=== PATIENT | male | born 1935 | race Caucasian/White ===

== ENCOUNTER 2017-08-25 15:42 | Observation (INO) | payer MEDICARE, OTHER ==
[2017-08-25] VITALS (7 sets, daily range): BP systolic 97–117; BP diastolic 53–57; PULSE 96–109; RESP 16–18; TEMP 97.8–98; O2SAT 91–98
--- NOTE | 2017-08-25 16:35 | PD ---
HPI Chief Complaint: generalized weakness, shortness of breath Time Seen by Provider: 16:34 Travel History International Travel<30 days: No Contact w/Intl Traveler<30days: No Traveled to known affect area: No History of Present Illness HPI 82-year-old gentleman was sent from his primary care's office for hypoxia and shortness of breath. His daughter took him to the primary care's office since her father has not been feeling too good for past 4-5 days. He can barely get up from the bed and requires a lot of assistance including currently wheelchair bound. He was able to ambulate before this. He has been short of breath as per her. His oxygen saturation was in mid 80s when he was taken to the primary care's office. No history of fever. Patient was diagnosed with influenza in May. Currently he is awake and answering questions slowly. Denies of any pain. As per the daughter he is not a complainer. He was slightly tachycardic in triage. His oxygen oxygen saturation is 94% on 2 L of oxygen via nasal cannula. He does not require oxygen at home. [facility] Past Medical History Narrative Medical List of his past medical, surgical, social and family history is reviewed from the nurse's note. Social History Tobacco Use: No Allergies-Medications (Allergen,Severity, Reaction): Coded Allergies: No Known Allergies (Verified Allergy, Unknown, 08/25/17) Comments List of his allergy to be from the nursing note. Reported Meds & Prescriptions Reported Meds & Active Scripts Active No Active Prescriptions or Reported Medications Narrative Medication List of his home medications reviewed from the nursing note. Review of Systems Except as stated in HPI: all other systems reviewed are Neg Respiratory: Positive: Shortness of Breath Physical Exam Narrative GENERAL: Elderly, frail, ordered distress SKIN: Focused skin assessment warm/dry. HEAD: Atraumatic. Normocephalic. EYES: Pupils equal and round. No scleral icterus. No injection or drainage. ENT: No nasal bleeding or discharge. Mucous membranes pink and moist. NECK: Trachea midline. No JVD. CARDIOVASCULAR: Regular rate and rhythm. No murmur appreciated. RESPIRATORY: No accessory muscle use. Diminished air entry in the right lung base GASTROINTESTINAL: Abdomen soft, non-tender, nondistended. Hepatic and splenic margins not palpable. MUSCULOSKELETAL: No obvious deformities. No clubbing. No cyanosis. No edema. Significant kyphosis at the cervical-thoracic junction NEUROLOGICAL: Awake and alert. No obvious cranial nerve deficits. Motor grossly within normal limits. Normal speech. PSYCHIATRIC: Appropriate mood and affect; insight and judgment normal. Data Data Last Documented VS Vital Signs Date Time Temp Pulse Resp B/P (MAP) Pulse Ox O2 Delivery O2 Flow Rate FiO2 08/25/17 17:46 100 16 97/54 (68) 91 Nasal Cannula 3.00 08/25/17 16:35 97.8 Orders Orders Complete Blood Count With Diff (08/25/17 16:41) Comprehensive Metabolic Panel (08/25/17 16:41) B-Type Natriuretic Peptide (08/25/17 16:41) Troponin I (08/25/17 16:41) Urinalysis - C+S If Indicated (08/25/17 16:41) Blood Culture (08/25/17 16:41) Iv Access Insert/Monitor (08/25/17 16:41) Electrocardiogram (08/25/17 16:41) Ecg Monitoring (08/25/17 16:41) Oximetry (08/25/17 16:41) Oxygen Administration (08/25/17 16:41) Chest, Single Ap (08/25/17 16:41) Sodium Chloride 0.9% Flush (Ns Flush) (08/25/17 16:45) Lactic Acid (08/25/17 16:41) Ceftriaxone Inj (Rocephin Inj) (08/25/17 17:45) Azithromycin Inj (Zithromax Inj) (08/25/17 17:45) Admit Order (Ed Use Only) (08/25/17 17:48) Labs Laboratory Tests Test 08/25/17 16:54 White Blood Count 15.4 TH/MM3 Red Blood Count 4.75 MIL/MM3 Hemoglobin 12.6 GM/DL Hematocrit 39.4 % Mean Corpuscular Volume 83.0 FL Mean Corpuscular Hemoglobin 26.6 PG Mean Corpuscular Hemoglobin Concent 32.0 % Red Cell Distribution Width 17.7 % Platelet Count 295 TH/MM3 Mean Platelet Volume 9.2 FL Neutrophils (%) (Auto) 89.0 % Lymphocytes (%) (Auto) 2.2 % Monocytes (%) (Auto) 4.4 % Eosinophils (%) (Auto) 0.8 % Basophils (%) (Auto) 3.6 % Neutrophils # (Auto) 13.8 TH/MM3 Lymphocytes # (Auto) 0.3 TH/MM3 Monocytes # (Auto) 0.7 TH/MM3 Eosinophils # (Auto) 0.1 TH/MM3 Basophils # (Auto) 0.6 TH/MM3 CBC Comment DIFF FINAL Differential Comment Blood Urea Nitrogen 90 MG/DL Creatinine 2.20 MG/DL Random Glucose 129 MG/DL Total Protein 6.2 GM/DL Albumin 2.8 GM/DL Calcium Level 8.3 MG/DL Alkaline Phosphatase 86 U/L Aspartate Amino Transf (AST/SGOT) 23 U/L Alanine Aminotransferase (ALT/SGPT) 31 U/L Total Bilirubin 0.5 MG/DL Sodium Level 142 MEQ/L Potassium Level 4.0 MEQ/L Chloride Level 104 MEQ/L Carbon Dioxide Level 30.8 MEQ/L Anion Gap 7 MEQ/L Estimat Glomerular Filtration Rate 29 ML/MIN Lactic Acid Level 1.0 mmol/L Troponin I 0.41 NG/ML B-Type Natriuretic Peptide 836 PG/ML MDM Medical Decision Making Medical Screen Exam Complete: Yes Emergency Medical Condition: Yes Medical Record Reviewed: Yes Interpretation(s) Twelve-lead EKG was reviewed by me. Normal sinus rhythm, normal axis, PACs, incomplete right bundle branch block, nonspecific ST-T wave changes, heart rate of 94 bpm. Differential Diagnosis Pneumonia, pleural effusion, empyema Narrative Course 5:46 PM blood test results are suggestive of leukocytosis with leftward shift. Chest x-ray shows right hemidiaphragm elevation with bilateral atelectasis and possible right-sided pleural effusion. Chemistry shows elevated BUN and creatinine and elevated troponin. Patient was given IV Rocephin and Zithromax by me. Lactic acid is within normal limit. Blood cultures pending. I've admitted the patient to the hospitalist. Patient would require cardiac workup including echocardiogram. The BUN and creatinine is elevated and there is no old labs to compare the chronicity of this. I discussed the case with the hospitalist who has accepted the patient. 7:30 PM after the daughter was told about her father's information she wanted to talk to her stepsisters and other family members. She said that her father wanted to go without getting any heroic measures done when the time came. She was debating between taking him home under hospice care or admitting to hospice can see him here and then they can go home. I was just told by the family that they would like to admit the father overnight and get palliative consult. I conveyed this to the current hospitalist and patient will be on comfort measures. Procedures EKG Prior to Arrival: No Diagnosis Primary Impression: Respiratory distress Additional Impressions: Hypoxia Non-STEMI (non-ST elevated myocardial infarction) possible pneumonia Leukocytosis Qualified Codes: D72.829 - Elevated white blood cell count, unspecified Renal failure Qualified Codes: N19 - Unspecified kidney failure Admitting Information Admitting Physician Requests: Admit Scripts No Active Prescriptions or Reported Meds Ge Simental MD Aug 25, 2017 16:35
[2017-08-25] MEDS ORDERED: SODIUM CHLORIDE 0.9% FLUSH 10 ML FLUSH IVF PRN (16:45)
[2017-08-25] MEDS ORDERED: LISI-515 PO (16:48)
[2017-08-25 17:09] LABS: AUTOMATED NEUTROPHIL # 13.8 TH/MM3 (1.8-7.7); BASOPHIL # 0.6 TH/MM3 (0-0.2); BASOPHIL % 3.6 % (0.0-2.0); EOSINOPHIL # 0.1 TH/MM3 (0-0.4); EOSINOPHIL % 0.8 % (0.0-4.0); HEMATOCRIT 39.4 % (39.0-51.0); HEMOGLOBIN 12.6 GM/DL (13.0-17.0); LYMPH % 2.2 % (9.0-44.0); LYMPHOCYTE # 0.3 TH/MM3 (1.0-4.8); MEAN CORPUSCULAR HEMOGLOBIN 26.6 PG (27.0-34.0); MEAN PLATELET VOLUME 9.2 FL (7.0-11.0); MONO % 4.4 % (0.0-8.0); MONOCYTE # 0.7 TH/MM3 (0-0.9); PLATELET COUNT 295 TH/MM3 (150-450); RED BLOOD COUNT 4.75 MIL/MM3 (4.50-5.90); RED CELL DISTRIBUTION WIDTH 17.7 % (11.6-17.2); WHITE BLOOD COUNT 15.4 TH/MM3 (4.0-11.0)
[2017-08-25 17:17] LABS: CHLORIDE 104 MEQ/L (98-107); SODIUM (NA) 142 MEQ/L (136-145)
[2017-08-25 17:20] LABS: ALBUMIN 2.8 GM/DL (3.4-5.0); BICARBONATE 30.8 MEQ/L (21.0-32.0); CALCIUM 8.3 MG/DL (8.5-10.1)
[2017-08-25 17:21] LABS: BLOOD UREA NITROGEN 90 MG/DL (7-18); GLUCOSE,RANDOM 129 MG/DL (74-106)
--- NOTE | 2017-08-25 17:22 | RADRPT ---
EXAM DATE/TIME: 08/25/2017 16:56 [facility] COMPARISON: No previous studies available for comparison. INDICATIONS : Shortness of breath. MEDICAL HISTORY : None. SURGICAL HISTORY : None. ENCOUNTER: Initial ACUITY: 1 day PAIN SCORE: 0/10 LOCATION: Bilateral chest FINDINGS: A single view of the chest demonstrates elevation of the right hemidiaphragm with bibasilar atelectat ic changes. Possible small associated effusions, especially on the right. Heart size is borderline pr ominent but appears to be well compensated. Osseous structures are intact. CONCLUSION: 1. Elevation of right hemidiaphragm. Bibasilar atelectatic changes 2. Possible associated effusions, right greater than left. 3. Cardiomegaly without overt failure. David Askew MD on August 25, 2017 at 17:18 Board Certified Radiologist. This report was verified electronically.
[2017-08-25 17:24] LABS: ALT (GPT) 31 U/L (12-78); AST (GOT) 23 U/L (15-37); GLOMERULAR FILTRATION RATE 29 ML/MIN (>89)
[2017-08-25 17:25] LABS: TOTAL BILIRUBIN ADULT 0.5 MG/DL (0.2-1.0); TOTAL PROTEIN 6.2 GM/DL (6.4-8.2)
[2017-08-25 17:27] LABS: ALKALINE PHOSPHATASE 86 U/L (45-117)
[2017-08-25 17:29] LABS: TROPONIN I 0.41 NG/ML (0.02-0.05)
[2017-08-25] MEDS ORDERED: AZITHROMYCIN INJ 500 MG in SODIUM CHLOR 0.9% 250 ML INJ 250 ML IV ONE (17:45)
[2017-08-25] MEDS ORDERED: cefTRIAXone INJ 1,000 MG in SODIUM CHLORIDE 0.9% INJ 100 ML IV ONE (17:45)
[2017-08-25] MEDS ORDERED: ONDANSETRON HCL 4 MG/2 ML VIAL IVP PRN (19:30)
[2017-08-25] MEDS ORDERED: BISACODYL 10 MG SUPP RECTAL PRN (19:30)
[2017-08-25] MEDS ORDERED: SODIUM CHLORIDE 0.9% FLUSH 10 ML FLUSH IV FLUSH PRN (19:30)
[2017-08-25] MEDS ORDERED: MORPHINE SULFATE 2 MG/ML INJ IV PUSH PRN (19:30)
[2017-08-25] MEDS ORDERED: MAGNESIUM HYDROXIDE SUSP 30 ML CUP PO PRN (19:30)
[2017-08-25] MEDS ORDERED: LACTULOSE SYRUP 20 GM/30 ML CUP PO PRN (19:30)
[2017-08-25] MEDS ORDERED: SENNOSIDES 8.6 MG TAB PO PRN (19:30)
[2017-08-25] MEDS ORDERED: ACETAMINOPHEN/HYDROcodone 325 MG/5 MG TAB PO PRN (19:30)
[2017-08-25] MEDS ORDERED: ACETAMINOPHEN 325 MG TAB PO PRN (19:30)
[2017-08-25] MEDS ORDERED: RESP: ALBUTEROL 2.5 MG/IPRATROPIUM 0.5 MG NEB (PRN) NEB (19:45)
[2017-08-25] MEDS: DOCUSATE SODIUM 50 MG/SENNA 8.6 MG TAB PO SCH (23:06)
[2017-08-25] MEDS: SODIUM CHLORIDE 0.9% FLUSH 10 ML FLUSH IV FLUSH SCH (23:14)
[2017-08-25] MEDS: SODIUM CHLOR 0.9% 1000 ML INJ 1,000 ML IV SCH (23:15)
[2017-08-26 00:30] VITALS: BP 96/52; PULSE 89; RESP 16; TEMP 97.6; O2SAT 96
[2017-08-26] MEDS: SODIUM CHLOR 0.9% 1000 ML INJ 1,000 ML IV SCH ×2 (05:38→07:24)
[2017-08-26 08:00] VITALS: BP 90/60; PULSE 82; RESP 18; TEMP 97; O2SAT 96
[2017-08-26] MEDS: DOCUSATE SODIUM 50 MG/SENNA 8.6 MG TAB PO SCH (08:38)
[2017-08-26] MEDS: SODIUM CHLORIDE 0.9% FLUSH 10 ML FLUSH IV FLUSH SCH (08:38)
--- NOTE | 2017-08-26 10:37 | HHI.PR ---
Objective Vitals Vital Signs Date Time Temp Pulse Resp B/P (MAP) Pulse Ox O2 Delivery O2 Flow Rate FiO2 08/26/17 10:11 Nasal Cannula 3.00 08/26/17 08:00 97.0 82 18 90/60 (70) 96 08/26/17 05:03 08/26/17 00:30 97.6 89 16 96/52 (67) 96 08/25/17 21:24 94 Nasal Cannula 3.00 08/25/17 21:22 98.0 97 18 102/57 (72) 93 08/25/17 21:08 97 18 93 Nasal Cannula 3.00 08/25/17 21:07 96 18 102/57 (72) 92 Nasal Cannula 3.00 08/25/17 19:26 98 18 101/57 (72) 93 Nasal Cannula 3.00 08/25/17 17:46 100 16 97/54 (68) 91 Nasal Cannula 3.00 08/25/17 16:46 94 Nasal Cannula 2.00 08/25/17 16:46 94 Nasal Cannula 2.00 08/25/17 16:39 94 Nasal Cannula 2.00 08/25/17 16:35 97.8 109 16 117/53 (74) 98 I/O 08/25/17 08/25/17 08/25/17 08/26/17 08/26/17 08/26/17 07:00 15:00 23:00 07:00 15:00 23:00 Intake Total 350 ml 588 ml Balance 350 ml 588 ml Intake IV Total 350 ml 588 ml # Voids 0 Result Diagram: 08/25/17 1654 08/25/17 165 Nikki Vu Aug 26, 2017 10:37
--- NOTE | 2017-08-26 10:58 | HHI.HP ---
HPI Service [facility] Primary Care Physician Andrea Wing DO Admission Diagnosis Non-STEMI, renal failure, possible pneumonia Diagnoses: Chief Complaint: Shortness of breath Travel History International Travel<30 Days: No Contact w/Intl Traveler <30 Da: No Traveled to Known Affected Are: No History of Present Illness This is a pleasant 82-year-old male patient with a known medical history of hypertension who presented to the ED with complaints of shortness of breath. Patient is seen at bedside with daughter, patient is a poor historian, daughter has helped with obtaining medical history and recent occurrences. She states that he presented to his PCP office because he wasn't feeling well for roughly 4 days, with increased shortness of breath and weakness. Patient's baseline is able to ambulate himself but has lately been weak and unable to walk, using his wheelchair at home. Supposedly his oxygen was in the mid 80s and the primary care office and was sent here for evaluation. Should be noted that patient had influenza in May and since then has just been declining. Denies any fever , chills, abdominal pain, nausea, vomiting, diarrhea or dysuria. Does not require any oxygen at home, has been using 2 LNC. Patient was found to be hypotensive on presentation. BNP 836. Creatinine 2.2, lactic acid 1.0, white blood cell 15.4. Review of Systems Constitutional: DENIES: Fever, Chills Eyes: DENIES: Blurred vision, Diplopia Respiratory: COMPLAINS OF: Shortness of breath, DENIES: Cough Cardiovascular: DENIES: Chest pain, Palpitations Gastrointestinal: DENIES: Abdominal pain Musculoskeletal: DENIES: Joint pain Hematologic/lymphatic: DENIES: Bruising Psychiatric: DENIES: Anxiety Except as stated in HPI: all other systems reviewed are Neg Past Family Social History Past Medical History Hypertension Past Surgical History Denies any surgical history. Reported Medications Active Reported Lisinopril 20 Mg Tab 20 Mg PO DAILY Allergies: Coded Allergies: No Known Allergies (Verified Allergy, Unknown, 08/25/17) Active Ordered Medications Current Medications Medications (Trade) Dose Ordered Sig/[place] Route Start Time Stop Time Status Last Admin (NS Flush) 2 ml UNSCH PRN IVF 08/25/17 16:45 Sodium Chloride 1,000 ml @ 100 mls/hr Q10H IV 08/25/17 19:27 08/26/17 07:24 (NS Flush) 2 ml UNSCH PRN IV FLUSH 08/25/17 19:30 (NS Flush) 2 ml BID IV FLUSH 08/25/17 21:00 08/25/17 23:14 (Zofran Inj) 4 mg Q6H PRN IVP 08/25/17 19:30 (Tylenol) 650 mg Q6H PRN PO 08/25/17 19:30 ([place] 5-325 Mg) 1 tab Q4H PRN PO 08/25/17 19:30 08/26/17 11:02 (Morphine Inj) 2 mg Q2H PRN IV PUSH 08/25/17 19:30 (Suzie-Colace) 1 tab BID PO 08/25/17 21:00 (Milk Of Magnesia Liq) 30 ml Q12H PRN PO 08/25/17 19:30 (Senokot) 17.2 mg Q12H PRN PO 08/25/17 19:30 (Dulcolax Supp) 10 mg DAILY PRN RECTAL 08/25/17 19:30 (Lactulose Liq) 30 ml DAILY PRN PO 08/25/17 19:30 Ceftriaxone Sodium 1000 mg/ Sodium Chloride 100 ml @ 200 mls/hr Q24H IV 08/26/17 20:00 Azithromycin 500 mg/Sodium Chloride 250 ml @ 250 mls/hr Q24H IV 08/26/17 19:00 (Duoneb Neb) 1 ampule Q4HR NEB PRN NEB 08/25/17 19:45 Family History Family history reviewed and noncontributory Social History Patient denies any use of tobacco, alcohol or illicit drug use. Physical Exam Vital Signs Vital Signs Date Time Temp Pulse Resp B/P (MAP) Pulse Ox O2 Delivery O2 Flow Rate FiO2 08/26/17 10:11 Nasal Cannula 3.00 08/26/17 08:00 97.0 82 18 90/60 (70) 96 08/26/17 05:03 08/26/17 00:30 97.6 89 16 96/52 (67) 96 08/25/17 21:24 94 Nasal Cannula 3.00 08/25/17 21:22 98.0 97 18 102/57 (72) 93 08/25/17 21:08 97 18 93 Nasal Cannula 3.00 08/25/17 21:07 96 18 102/57 (72) 92 Nasal Cannula 3.00 08/25/17 19:26 98 18 101/57 (72) 93 Nasal Cannula 3.00 08/25/17 17:46 100 16 97/54 (68) 91 Nasal Cannula 3.00 08/25/17 16:46 94 Nasal Cannula 2.00 08/25/17 16:46 94 Nasal Cannula 2.00 08/25/17 16:39 94 Nasal Cannula 2.00 08/25/17 16:35 97.8 109 16 117/53 (74) 98 Physical Exam GENERAL: Well-nourished, well-developed elderly weak appearing male patient in NAD. SKIN: Warm and dry. No rash. HEAD: Normocephalic. Atraumatic. EYES: Pupils equal and round. No scleral icterus. No injection or drainage. ENT: No nasal bleeding or discharge. Mucous membranes pink and moist. NECK: Supple. Trachea midline. CARDIOVASCULAR: Regular rate and rhythm. S1, S2 noted. No murmur appreciated. RESPIRATORY: No accessory muscle use. Clear to auscultation. Breath sounds equal bilaterally. GASTROINTESTINAL: Abdomen soft, non-tender, nondistended. Normoactive bowel sounds x4. MUSCULOSKELETAL: No obvious deformities. Extremities without clubbing, cyanosis , or edema. NEUROLOGICAL: Awake and alert. No obvious cranial nerve deficits. Motor grossly within normal limits. 4/5 muscle strength in bilateral upper and lower extremities. Normal speech. PSYCHIATRIC: Appropriate mood and affect; insight and judgment normal. Laboratory Laboratory Tests Test 08/25/17 16:54 White Blood Count 15.4 Red Blood Count 4.75 Hemoglobin 12.6 Hematocrit 39.4 Mean Corpuscular Volume 83.0 Mean Corpuscular Hemoglobin 26.6 Mean Corpuscular Hemoglobin Concent 32.0 Red Cell Distribution Width 17.7 Platelet Count 295 Mean Platelet Volume 9.2 Neutrophils (%) (Auto) 89.0 Lymphocytes (%) (Auto) 2.2 Monocytes (%) (Auto) 4.4 Eosinophils (%) (Auto) 0.8 Basophils (%) (Auto) 3.6 Neutrophils # (Auto) 13.8 Lymphocytes # (Auto) 0.3 Monocytes # (Auto) 0.7 Eosinophils # (Auto) 0.1 Basophils # (Auto) 0.6 CBC Comment DIFF FINAL Differential Comment Blood Urea Nitrogen 90 Creatinine 2.20 Random Glucose 129 Total Protein 6.2 Albumin 2.8 Calcium Level 8.3 Alkaline Phosphatase 86 Aspartate Amino Transf (AST/SGOT) 23 Alanine Aminotransferase (ALT/SGPT) 31 Total Bilirubin 0.5 Sodium Level 142 Potassium Level 4.0 Chloride Level 104 Carbon Dioxide Level 30.8 Anion Gap 7 Estimat Glomerular Filtration Rate 29 Lactic Acid Level 1.0 Troponin I 0.41 B-Type Natriuretic Peptide 836 Date/Time Source Procedure Growth Status 08/25/17 16:54 Blood Peripheral Aerobic Blood Culture Pending Received 08/25/17 16:54 Blood Peripheral Anaerobic Blood Culture Pending Received Result Diagram: 08/25/17 1654 08/25/17 1654 Imaging Active Reported Lisinopril 20 Mg Tab 20 Mg PO DAILY Septic Shock Reassessment Septic shock perfusion: reassessment completed Caprini VTE Risk Assessment Caprini VTE Risk Assessment: Mod/High Risk (score >= 2) Caprini Risk Assessment Model Point Value = 1 Point Value = 2 Point Value = 3 Point Value = 5 Age 41-60 Minor surgery BMI > 25 kg/m2 Swollen legs Varicose veins or History of unexplained or recurrent spontaneous Oral contraceptives or hormone replacement Sepsis (< 1 month) Serious lung disease, including pneumonia (< 1 month) Abnormal pulmonary function Acute myocardial infarction Congestive heart failure (< 1 month) History of inflammatory bowel disease Medical patient at bed rest Age 61-74 Arthroscopic surgery Major open surgery (> 45 min) Laparoscopic surgery (> 45 min) Malignancy Confined to bed (> 72 hours) Immobilizing plaster cast Central venous access Age >= 75 History of VTE Family history of VTE Factor V Leiden Prothrombin [id number] Lupus anticoagulant Anticardiolipin antibodies Elevated serum homocysteine Heparin-induced thrombocytopenia Other congenital or acquired thrombophilia Stroke (< 1 month) Elective arthroplasty Hip, pelvis, or leg fracture Acute spinal cord injury (< 1 month) Prophylaxis Regimen Total Risk Factor Score Risk Level Prophylaxis Regimen 0-1 Low Early ambulation 2 Moderate Order ONE of the following: *Sequential Compression Device (SCD) *Heparin 5000 units SQ BID 3-4 Higher Order ONE of the following medications: *Heparin 5000 units SQ TID *Enoxaparin/Lovenox 40 mg SQ daily (WT < 150 kg, CrCl > 30 mL/min) *Enoxaparin/Lovenox 30 mg SQ daily (WT < 150 kg, CrCl > 10-29 mL/min) *Enoxaparin/Lovenox 30 mg SQ BID (WT < 150 kg, CrCl > 30 mL/min) AND/OR *Sequential Compression Device (SCD) 5 or more Highest Order ONE of the following medications: *Heparin 5000 units SQ TID (Preferred with Epidurals) *Enoxaparin/Lovenox 40 mg SQ daily (WT < 150 kg, CrCl > 30 mL/min) *Enoxaparin/Lovenox 30 mg SQ daily (WT < 150 kg, CrCl > 10-29 mL/min) *Enoxaparin/Lovenox 30 mg SQ BID (WT < 150 kg, CrCl > 30 mL/min) AND *Sequential Compression Device (SCD) Assessment and Plan Problem List: (1) Respiratory distress ICD Code: R06.03 - Acute respiratory distress Status: Acute Plan: Suspect secondary to CHF exacerbation vs infectious etiology vs NSTEMI With leukocytosis, WBC 15.4. Requiring supplemental O2. Lactic acid 1.0 Chest x-ray reviewed showing elevation of right hemidiaphragm. Bibasilar atelectatic changes. With associated effusions right greater than left. Cardiomegaly. Blood cultures drawn and no growth today. Follow. Has been afebrile. Mildly hypotensive, monitor BP trends. Gentle hydration. Troponin elevated upon presentation. suspect secondary to CHF Started on IV antibiotics. (2) [id number] kidney injury ICD Code: N17.9 - Acute kidney failure, unspecified; N18.9 - Chronic kidney disease, unspecified Plan: Creatinine 2.2 on presentation, unknown baseline. Continue IV fluids. Spoke with daughter at length who desires hospice consult. Hospice consulted and saw patient and spoke with daughter who wants to take patient home. Spoke to daughter regarding acute on chronic renal failure, NSTEMI and possible infection. Ultimately desires for patient to go home and be comfortable with Hospice. We'll arrange for discharge home and comfort measures. Patient is a DNR. Nikki Vu Aug 26, 2017 10:58
[2017-08-26 12:00] VITALS: BP 89/50; PULSE 83; RESP 18; TEMP 97.7; O2SAT 95
--- NOTE | 2017-08-26 13:44 | EKG ---
Date Performed: 08/25/2017 Time Performed: 16:59:57 PTAGE: 82 years EKG: Sinus rhythm WITH OCCASIONAL SUPRAVENTRICULAR PREMATURE COMPLEXES BORDERLINE LEFT AXIS DEVIATION INCOMPLETE RIGHT BUNDLE BRANCH BLOCK BORDERLINE ECG NO PREVIOUS TRACING DOCTOR: Mike Galloway Interpretating Date/Time 08/26/2017 13:42:14
--- NOTE | 2017-08-26 15:38 | HHI.DCPOC ---
Discharge Care Plan Diagnosis: (1) Respiratory distress (2) Leukocytosis (3) Renal failure (4) Hypoxia (5) Non-STEMI (non-ST elevated myocardial infarction) (6) [id number] kidney injury Goals to Promote Your Health * To prevent worsening of your condition and complications * To maintain your health at the optimal level Directions to Meet Your Goals Take your medications as prescribed Follow your dietary instruction Follow activity as directed Keep your appointments as scheduled Take your immunizations and boosters as scheduled If your symptoms worsen call your PCP, if no PCP go to Urgent Care Center or Emergency Room Smoking is Dangerous to Your Health. Avoid second hand smoke Call the 24-hour hour crisis hotline for domestic abuse at Nikki Vu Aug 26, 2017 15:38
[2017-08-26 16:00] VITALS: BP 89/63; PULSE 83; RESP 18; TEMP 97.7; O2SAT 95
[2017-08-26] MEDS ORDERED: AZITHROMYCIN INJ 500 MG in SODIUM CHLOR 0.9% 250 ML INJ 250 ML IV SCH (19:00)
[2017-08-26] MEDS ORDERED: cefTRIAXone INJ 1,000 MG in SODIUM CHLORIDE 0.9% INJ 100 ML IV SCH (20:00)
== END 2017-08-26 17:12 | disposition hospice, home (50) ==
LOC: PHED 15:42 → PHEDA 17:52 → INTOOBSV 17:52 → PH3B 21:05
PROVIDERS: ADMIT Hospitalist; ATTEND Hospitalist
DX: R06.03 Acute respiratory distress (principal); R09.02 Hypoxemia; I21.4 Non-ST elevation (NSTEMI) myocardial infarction; D72.829 Elevated white blood cell count, unspecified; N17.9 Acute kidney failure, unspecified; I51.7 Cardiomegaly; Z99.3 Dependence on wheelchair; I45.10 Unspecified right bundle-branch block; J98.11 Atelectasis
CPT/HCPCS: 71045; 80053; 83605; 83880; 84484; 85025; 87040; 93005; 96361; 96365; 96376; 99285; G0378; J0456; J0696; J7030; J7050